=== PATIENT | male | born 1995 | race Caucasian/White ===

== ENCOUNTER 2019-06-07 05:02 | Emergency (ER) | payer SELFPAY ==
[~2019-06-07] VITALS: Ht 177.8 cm; Wt 77.1 kg
[2019-06-07 05:14] VITALS: BP 122/86
--- NOTE | 2019-06-07 05:15 | NUR ---
PT [facility]BUALTORY TO ROOM 12
--- NOTE | 2019-06-07 05:20 | NUR ---
PT C/O SOB AFTER RUNNNING OUT OF ALBUTEROL AT HOME. PT APPEARS TO BE IN NO DISTRESS. PT VSS. 96% RA. PT HAVING INSPIRATORY AND EXPIRATORY WHEEZING. PT STATES HIS SOB IS VERY MILD AT THIS TIME. DENIES N/V/D; SKIN IS PINK/WARM/DRY; AAOX4 WITH EVEN AND STEADY GAIT; HR EVEN AND REGULAR; PT DENIES ANY FEVER, CP, OR COUGH AT THIS TIME; PATIENT STATES PAIN OF 0/10 AT THIS TIME; VSS; PATIENT POSITIONED FOR COMFORT; HOB ELEVATED; BEDRAILS UP X1; BED DOWN. ER MD MADE AWARE OF PT STATUS.
[2019-06-07] MEDS ORDERED: ALBUTEROL SULFATE/IPRATROPIU 3 ML SOL IH ONE ×2 (05:21→05:40)
--- NOTE | 2019-06-07 05:21 | NUR ---
RT AT BEDSIDE.
[2019-06-07] MEDS ORDERED: predniSONE 20 MG TAB PO ONE (05:40)
--- NOTE | 2019-06-07 05:47 | NUR ---
PT LUNGS CLEAR AFTER BREATHIGN TX. PT SATS 97%. PT APPEARS TO BE IN NO DISTERESS.
[2019-06-07] MEDS ORDERED: INTUBATION KIT MC ONE (05:53)
[2019-06-07 06:27] VITALS: BP 124/84
--- NOTE | 2019-06-07 06:27 | NUR ---
Patient discharged with v/s stable. Written and verbal after care instructions given and explained. Patient alert, oriented and verbalized understanding of instructions. Ambulatory with steady gait. All questions addressed prior to discharge. ID band removed. Patient advised to follow up with PMD. Rx of [id number] MG,ALBUTEROL 90MCG, FLUTICASONE/[id number]/50MCG given. Patient educated on indication of medication including possible reaction and side effects. Opportunity to ask questions provided and answered.
== END 2019-06-07 06:27 | disposition home or self-care (01) ==
LOC: MED 05:02
DX: J45.901 Unspecified asthma with (acute) exacerbation (principal)
CPT/HCPCS: 94640; 99283; J7512; J7620